=== PATIENT | female | born 1975 | race Caucasian/White ===

== ENCOUNTER 2016-11-01 01:04 | Emergency (ER) | payer OTHER | END 2016-11-01 01:35 | disposition home or self-care (01) | LOC: MADERS 01:04 | DX: M25.562 Pain in left knee (principal); R07.89 Other chest pain; M25.511 Pain in right shoulder; F17.210 Nicotine dependence, cigarettes, uncomplicated; Z87.442 Personal history of urinary calculi | CPT/HCPCS: 99283 ==

== ENCOUNTER 2017-11-10 13:41 | Emergency (ER) | payer OTHER ==
[~2017-11-10 13:41] MED LIST: Sodium Chloride 0.9% 1,000 ML BAG ONE
[2017-11-10] MEDS ORDERED: MORPHINE 10 MG/ML SYRINGE ONE (14:03)
[2017-11-10 14:33] LABS: Anion Gap 15 mmol/L (10-20); BUN (Urea Nitrogen) 14 mg/dL (7.0-18.7); Calc. Creatinine Clearance 0 mL/min (70-130); Calcium 9.6 mg/dL (7.8-10.44); Carbon Dioxide 23 mmol/L (22-29); Chloride 107 mmol/L (98-107); Estimated GFR-MDRD 62; Glucose 128 mg/dL (70-105); Potassium 4.1 mmol/L (3.5-5.1); Sodium 141 mmol/L (136-145)
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
[2017-11-10 14:49] LABS: Band 1 % (5-11); Hemoglobin 16.1 g/dL (12.0-16.0); Lymphocytes 18 % (21-51); MDiff Complete? YES; Mean Corpuscular HGB CONC 34.9 g/dL (32.0-36.0); Mean Corpuscular Hemoglobin 31.5 pg (27.0-31.0); Mean Corpuscular Volume 90.3 fl (81.0-99.0); Mean Platelet Volume 8.2 fL (7.4-10.4); Monocytes 5 % (0-10); Neutrophil 76 % (42-75); Platelet Count 283 thou/uL (130-400); RBC Distribution Width 11.3 % (11.5-14.5); White Blood Cell (WBC) Count 17.3 thou/uL (4.8-10.8)
[2017-11-10 15:04] LABS: CK (CPK) 32 U/L (29-168)
[2017-11-10] MEDS ORDERED: Ondansetron HCl/PF 4 MG/2 ML Vial ONE (15:05)
[2017-11-10 15:29] LABS: ALT (SGPT) 36 U/L (8-55); AST (SGOT) 19 U/L (5-34); Albumin 4.1 g/dL (3.5-5.0); Alkaline Phosphatase 75 U/L (40-150); Bilirubin, Direct 0.1 mg/dL (0.1-0.3); Bilirubin, Total 0.5 mg/dL (0.2-1.2); Protein, Total 7.7 g/dL (6.0-8.3)
[2017-11-10] MEDS ORDERED: Ketorolac Tromethamine 30 MG/ML VIAL ONE (15:43)
== END 2017-11-10 16:50 | disposition home or self-care (01) ==
LOC: MADERS 13:41
DX: S69.91XA Unspecified injury of right wrist, hand and finger(s), initial encounter (principal); D72.829 Elevated white blood cell count, unspecified; X50.9XXA Other and unspecified overexertion or strenuous movements or postures, initial encounter
CPT/HCPCS: 80048; 80076; 82550; 83690; 85025; 96361; 96374; 96375; J1885; J2270; J2405; J7050